=== PATIENT | female | born 1950 | race Caucasian/White ===

== ENCOUNTER 2016-11-02 07:27 | Inpatient (IN) | payer MEDICARE, BC ==
[2016-11-01 11:14] VITALS: Ht 160 cm; Wt 83.2 kg
[2016-11-02] VITALS (26 sets, daily range): BP systolic 106–155; BP diastolic 53–86; PULSE 58–78; RESP 11–20
[~2016-11-02] VITALS: Ht 160 cm; Wt 83.2 kg
[~2016-11-02 07:27] MED LIST: CEFAZOLIN 1 GM INJ ONE; CEFAZOLIN 2 GM/50 ML (PMX) 50 ML IVPB ONE; DEXAMETHASONE 1 MG TAB PO ONE; GABAPENTIN 300 MG CAP PO ONE; GLYCOPYRROLATE 0.4 MG INJ ONE; NEOSTIGMINE 3 MG/3 ML SYRINGE ONE; TRANEXAMIC ACID 1,000 MG in SOD CHLORIDE 0.9% 100 ML IVPB ONE; traMADol 50 MG TAB PO ONE
[2016-11-02] MEDS ORDERED: MIDAZOLAM 1 MG/ML 2 ML INJ ONE (07:57)
[2016-11-02] MEDS ORDERED: FENTAnyl 50 MCG/ML VIAL ONE (07:58)
[2016-11-02] MEDS ORDERED: ROPIVACAINE 0.5 % 30 ML VIAL ONE (07:59)
[2016-11-02] MEDS ORDERED: METO100T13 PO (08:02)
[2016-11-02] MEDS ORDERED: LOSA100T7 PO (08:03)
[2016-11-02] MEDS ORDERED: DOXY100T20 PO (08:06)
[2016-11-02] MEDS ORDERED: THROMBIN 5000 UNIT VIAL ONE (08:26)
[2016-11-02] MEDS ORDERED: BUPIVACAINE 0.5%/EPI (SDV) 10 ML INJ ONE (08:26)
[2016-11-02] MEDS ORDERED: POLYMYXIN/BACITRACIN 1L IRRIG ONE (08:27)
[2016-11-02] MEDS ORDERED: CA CHLORIDE 10% 10 ML SYRINGE ONE (08:27)
--- NOTE | 2016-11-02 08:34 | HPN ---
Date/Time of Note Date/Time of Note DATE: 11/02/16 TIME: 08:34 Interval H&P Admission Note Pt. seen H&P reviewed: No system changes LATA GOMEZ MD Nov 02, 2016 08:34
[2016-11-02] MEDS ORDERED: PROPOFOL 20 ML ONE (08:57)
[2016-11-02] MEDS ORDERED: ROCURONIUM 50 MG INJ ONE (08:58)
[2016-11-02] MEDS ORDERED: LIDOCAINE 2% (SDV) 5 ML INJ ONE (08:58)
[2016-11-02] MEDS ORDERED: ONDANSETRON 4 MG INJ ONE (10:12)
[2016-11-02] MEDS ORDERED: DEXAMETHASONE 4 MG/ML 1 ML INJ ONE (10:12)
[2016-11-02] MEDS ORDERED: DIPHENHYDRAMINE 50 MG INJ IV PRN ×2 (10:30)
[2016-11-02] MEDS ORDERED: HYDROmorphONE (0.2 MG/ML) 10ML SYG IV PRN ×3 (10:30)
[2016-11-02] MEDS ORDERED: TRANEXAMIC ACID 1,000 MG in SOD CHLORIDE 0.9% 100 ML IV ONE (10:30)
[2016-11-02] MEDS ORDERED: OXYCODONE/ACETAMINOPHEN (5/325) TAB PO PRN ×3 (10:30)
[2016-11-02] MEDS ORDERED: EPHEDrine SULFATE 50 MG/5 ML SYG IV PRN (10:30)
[2016-11-02] MEDS ORDERED: ZOLPIDEM 5 MG TAB PO PRN (10:30)
[2016-11-02] MEDS ORDERED: morphine 2 MG INJ IV PRN (10:30)
[2016-11-02] MEDS ORDERED: ONDANSETRON 4 MG INJ IV PRN ×2 (10:30)
[2016-11-02] MEDS ORDERED: KETOROLAC 15 MG INJ IV PRN (10:30)
[2016-11-02] MEDS ORDERED: hydrALAzine 20 MG INJ IV PRN (10:30)
[2016-11-02] MEDS ORDERED: LABETALOL HCL 20MG INJ IV PRN (10:30)
[2016-11-02] MEDS ORDERED: morphine 4 MG/ML VIAL IV PRN (10:30)
[2016-11-02] MEDS ORDERED: FENTAnyl 50 MCG/ML VIAL IV PRN ×3 (10:30)
[2016-11-02] MEDS ORDERED: MEPERIDINE 25 MG INJ IV PRN (10:30)
[2016-11-02] MEDS ORDERED: ACETAMINOPHEN 500 MG TAB PO PRN (10:30)
[2016-11-02] MEDS ORDERED: MAGNESIUM HYDROXIDE 30ML CUP PO PRN (10:30)
--- NOTE | 2016-11-02 10:32 | OPR ---
Date/Time of Note Date/Time of Note DATE: 11/02/16 TIME: 10:28 Operative Report Procedure Date: Nov 02, 2016 Preoperative Diagnosis Secondary osteoarthritis right shoulder Postoperative Diagnosis 1 secondary osteoarthritis right shoulder 2 right shoulder massive unrepairable rotator cuff tear Operation Performed Right reverse total shoulder replacement Surgeon: LATA GOMEZ MD Training And Development Director: NIECY PATEL MD Anesthesia: general Estimated Blood Loss: 50 - 100 ml's Pt Condition Post Procedure: stable Disposition: PACU Procedure Description Training And Development Director surgeon: Niecy Patel MD was asked to be present at my request as a result of the complexity associated with this procedure including positioning of the extremity, manipulation and protection of the neurovascular structures. In my opinion, the assistance offered by a surgical elastic knitter is insufficient and Dr. Patel should be compensated for her time Procedure in detail: Following the administration of general endotracheal anesthesia, the patient was placed in the beachchair position. The right upper extremity was prepped and draped in the usual sterile fashion. An extended deltopectoral incision was then undertaken exposing the conjoined tendon and retracting it medially the subscapularis was then detached the superior rotator cuff was deficient. Once the subscapularis was detached, severe arthritic changes were noted with a large loose body. Peripheral osteophytes were then removed and a humeral head cut was then made in the appropriate degree of version and inclination. The glenoid was then exposed capsulectomy was then completed followed by entry into the central canal in preparation for a standard baseplate. A Depuy standard baseplate was then implanted with 4 peripheral screws. A 38 mm glenoid sphere was then applied with solid fixation. Attention was then directed to the humeral shaft shaft was reamed up to 10 mm and prepared for a standard reverse total shoulder component. The actual component (Depuy) with a 9 mm liner was then implanted in stable position with full range of motion. The joint was irrigated and taken through full range of motion. The wound was then closed in layers followed by a Prenio dressing for the superficial portion. The patient was then placed in an UltraSling and extubated. She was transported to recovery in stable condition tolerating the procedure well estimated blood loss was procedure was 100 cc postoperative x-rays will be obtained in the recovery room. LATA GOMEZ MD Nov 02, 2016 10:32
--- NOTE | 2016-11-02 10:33 | PDOCDIS ---
Discharge Instructions DIAGNOSIS Discharge Diagnosis Right shoulder arthritis CONDITION Patient Condition: Good HOME CARE INSTRUCTIONS: Diet Instructions: Regular ACTIVITY: Activity Restrictions: Slowly Increase Activity Keep Limb Elevated Bathing Restrictions: Shower FOLLOW UP/APPOINTMENTS Follow-up Plan 2 weeks after surgery in the office SCHOOL/WORK RELEASE May return to School/Work with: With Restrictions School/Work Release Comment: 5 pounds tabletop usage for the next 6 weeks LATA GOMEZ MD Nov 02, 2016 10:33
[2016-11-02] MEDS ORDERED: CEFAZOLIN 1 GM/50 ML (PMX) 50 ML IVPB ONE (10:44)
[2016-11-02] MEDS: CEFAZOLIN 1 GM/50 ML (PMX) 50 ML IVPB SCH ×2 (11:00→18:55)
--- NOTE | 2016-11-02 11:59 | RADRPT ---
PROCEDURE: XR Right Shoulder CLINICAL INDICATION: Postop TECHNIQUE: An AP and a Y view were submitted. COMPARISON: None FINDINGS: Osseous structures: A well seated reverse total right shoulder arthroplasty is evident with the comp onents well-seated. The osseous elements otherwise appear intact but rarefied. Joint spaces: The prosthetic joint space and the AC joint are well maintained. Soft tissues: Postoperative subcutaneous air is evident. There appears to be mild left lateral pleu ral thickening. IMPRESSION: 1. Well seated reversed total right shoulder arthroplasty. 2. Postop subcutaneous air is evident. 3. Osteoporosis 4. Mild right lateral pleural thickening. Physician Tye Date Time Electronically viewed and signed by Physician Tye on 11/02/2016 11:59 /
[2016-11-02] MEDS: DEXAMETHASONE 2 MG TAB PO SCH ×3 (12:57→23:00)
[2016-11-02] MEDS: SENNA/DOCUSATE NA (8.6MG/50MG) TAB PO SCH (20:24)
[2016-11-02] MEDS ORDERED: GABAPENTIN 300 MG CAP PO SCH (21:00)
[2016-11-02] MEDS: OXYCODONE/ACETAMINOPHEN (5/325) TAB PO PRN (22:57)
[2016-11-03] MEDS: CEFAZOLIN 1 GM/50 ML (PMX) 50 ML IVPB SCH (03:18)
[2016-11-03] MEDS: OXYCODONE/ACETAMINOPHEN (5/325) TAB PO PRN ×2 (03:21→09:32)
[2016-11-03] MEDS: DEXAMETHASONE 2 MG TAB PO SCH (05:45)
--- NOTE | 2016-11-03 07:01 | PN ---
Date/Time of Note Date/Time of Note DATE: 11/03/16 TIME: 07:00 24 hour Interval Summary Patient is awake and alert. She has no pain at this point. She is very comfortable. Physical Exam Physical examination reveals that her wound is clean and dry. She is neurologically intact. She has no signs of DVT. Vital Signs Date Time Temp Pulse Resp B/P Pulse Ox O2 Delivery O2 Flow Rate FiO2 11/02/16 20:34 98.3 86 20 106/53 94 11/02/16 18:00 Room Air 11/02/16 12:30 4.0 Intake and Output 11/02/16 11/02/16 11/03/16 15:00 23:00 07:00 Intake Total 800 ml 750 ml Output Total 60 ml 900 ml Balance 740 ml -150 ml VTE Prophylaxis VTE Prophylaxis Intervention: anti-embolic stocking Lines/Catheters IV Catheter Type: Saline Lock Mccallum in Place: No Assessment/Plan Assessment/Plan Assessment: Status post total shoulder replacement. She will go through physical therapy this morning and follow-up following discharge in the next 2 weeks in the office. Medications Medications Home Meds Reported Medications Doxycycline Hyclate* (Doxycycline Hyclate*) 100 Mg Tablet.dr, 100 MG PO BID, TAB STARTED -11 FOR 5 DAYS 11/02/16 Losartan Potassium* (Losartan Potassium*) 100 Mg Tablet, 100 MG PO DAILY, TAB 11/02/16 Metoprolol Succinate* (Toprol XL*) 100 Mg Tab.sr.24h, 100 MG PO DAILY, #30 TAB 11/02/16 LATA GOMEZ MD Nov 03, 2016 07:01
--- NOTE | 2016-11-03 07:02 | DS ---
Date/Time of Note Date/Time of Note DATE: 11/03/16 TIME: 07:01 Discharge Summary Admission/Discharge Info Admit Date/Time Nov 02, 2016 at 07:27 Discharge Date/Time November 03, 2016 Discharge Diagnosis Right shoulder arthritis Patient Condition: Good Procedures right reverse total shoulder replacement Hx of Present Illness Severe pain and stiffness in the bilateral shoulders with the right being worse Hospital Course Patient was admitted and underwent an uncomplicated right reverse total shoulder replacement. Postoperative day #1 she was clean and dry neurologically intact discharged to be followed up in the office in 2 weeks Home Meds Reported Medications Doxycycline Hyclate* (Doxycycline Hyclate*) 100 Mg Tablet.dr, 100 MG PO BID, TAB STARTED 7-11 FOR 5 DAYS 11/02/16 Losartan Potassium* (Losartan Potassium*) 100 Mg Tablet, 100 MG PO DAILY, TAB 11/02/16 Metoprolol Succinate* (Toprol XL*) 100 Mg Tab.sr.24h, 100 MG PO DAILY, #30 TAB 11/02/16 Primary Care Provider Not On Staff Doctor LATA GOMEZ MD Nov 03, 2016 07:02
[2016-11-03 07:40] VITALS: BP 121/58; RESP 18
[2016-11-03] MEDS ORDERED: METOPROLOL (XL) 100 MG TAB PO SCH (09:00)
[2016-11-03] MEDS ORDERED: ASPIRIN 81 MG TAB PO SCH (09:00)
[2016-11-03] MEDS ORDERED: LOSARTAN 50 MG TAB PO SCH (09:00)
[2016-11-03] MEDS: SENNA/DOCUSATE NA (8.6MG/50MG) TAB PO SCH (09:27)
== END 2016-11-03 12:00 | disposition home or self-care (01) | DRG 483 ==
LOC: REC 07:27 → MS1 14:17
PROVIDERS: ADMIT Orthopaedic Surgery; ATTEND Orthopaedic Surgery
PROC: 0RRJ00Z Replacement of Right Shoulder Joint with Reverse Ball and Socket Synthetic Substitute, Open Approach (ICD-10-PCS; principal; 2016-11-02 09:30)
DX: M19.211 Secondary osteoarthritis, right shoulder (principal); M75.101 Unspecified rotator cuff tear or rupture of right shoulder, not specified as traumatic
CPT/HCPCS: 86999; 88304; 88311; 97167; C1776; J0690; J1100; J2250; J2405; J2710; J2795; J3010

== ENCOUNTER 2017-01-25 07:38 | Inpatient (IN) | payer MEDICARE, BC ==
[2017-01-24 09:42] VITALS: BMI 32.0
[2017-01-25] VITALS (24 sets, daily range): BP systolic 104–201; BP diastolic 56–93; PULSE 50–80; RESP 8–20; Ht 160 cm; Wt 83.2 kg
[~2017-01-25] VITALS: Ht 160 cm; Wt 83.2 kg
--- NOTE | 2017-01-25 06:47 | HPN ---
Date/Time of Note Date/Time of Note DATE: 01/25/17 TIME: 06:47 Interval H&P Admission Note Pt. seen H&P reviewed: No system changes LATA GOMEZ MD Jan 25, 2017 06:47
[~2017-01-25 07:38] MED LIST changes: +BUPIVACAINE 0.5% (SDV) 30 ML, morphine SULFATE (PF) 8 MG, EPINEPHrine 0.3 MG, KETOROLAC... IRR SCH; -CEFAZOLIN 1 GM INJ ONE; +DOXY100T20 PO; -GLYCOPYRROLATE 0.4 MG INJ ONE; +LOSA100T7 PO; +METO-336 PO; -NEOSTIGMINE 3 MG/3 ML SYRINGE ONE
[2017-01-25] MEDS ORDERED: METO-319 PO (08:06)
[2017-01-25] MEDS ORDERED: DOXY100T20 PO (08:07)
[2017-01-25] MEDS ORDERED: OXYCODONE/ACETAMINOPHEN (5/325) TAB PO PRN ×5 (08:30→15:00)
[2017-01-25] MEDS ORDERED: PROCHLORPERAZINE 10 MG INJ IV PRN ×2 (08:30→15:00)
[2017-01-25] MEDS ORDERED: ONDANSETRON 4 MG INJ IV PRN ×3 (08:30→15:00)
[2017-01-25] MEDS ORDERED: HYDROmorphONE (0.2 MG/ML) 10ML SYG IV PRN ×4 (08:30→15:00)
[2017-01-25] MEDS ORDERED: FENTAnyl 50 MCG/ML VIAL IV PRN ×2 (08:30→15:00)
[2017-01-25] MEDS ORDERED: MEPERIDINE 25 MG INJ IV PRN ×2 (08:30→15:00)
[2017-01-25] MEDS ORDERED: DIPHENHYDRAMINE 50 MG INJ IV PRN ×3 (08:30→15:00)
[2017-01-25] MEDS ORDERED: SUCCINYLCHOLINE CHLORIDE 100 MG/5 ML SYG IV ONE (10:56)
[2017-01-25] MEDS ORDERED: PROPOFOL 20 ML ONE (10:56)
[2017-01-25] MEDS ORDERED: LIDOCAINE 2% (SDV) 5 ML INJ ONE (10:56)
[2017-01-25] MEDS ORDERED: FENTAnyl 50 MCG/ML VIAL ONE ×2 (10:57→14:11)
[2017-01-25] MEDS ORDERED: MIDAZOLAM 1 MG/ML 2 ML INJ ONE (10:57)
[2017-01-25] MEDS ORDERED: ROPIVACAINE 0.5 % 30 ML VIAL ONE (10:57)
[2017-01-25] MEDS ORDERED: THROMBIN 5000 UNIT VIAL ONE (12:41)
[2017-01-25] MEDS ORDERED: CA CHLORIDE 10% 10 ML SYRINGE ONE (12:41)
[2017-01-25] MEDS ORDERED: BUPIVACAINE 0.5%/EPI (SDV) 30 ML INJ ONE (12:41)
[2017-01-25] MEDS ORDERED: DEXAMETHASONE 4 MG/ML 1 ML INJ ONE (13:34)
[2017-01-25] MEDS ORDERED: METOCLOPRAMIDE 10 MG INJ ONE (13:34)
[2017-01-25] MEDS ORDERED: ONDANSETRON 4 MG INJ ONE (13:34)
[2017-01-25] MEDS ORDERED: CEFAZOLIN 1 GM INJ ONE (13:37)
[2017-01-25] MEDS ORDERED: EPHEDrine SULFATE 50 MG/5 ML SYG ONE (13:37)
[2017-01-25] MEDS ORDERED: ROCURONIUM 50 MG INJ ONE (13:37)
[2017-01-25] MEDS ORDERED: GLYCOPYRROLATE 0.4 MG INJ ONE ×2 (13:44→13:59)
[2017-01-25] MEDS ORDERED: NEOSTIGMINE 3 MG/3 ML SYRINGE ONE (13:59)
[2017-01-25] MEDS ORDERED: POLYMYXIN/BACITRACIN 1L IRRIG IRR ONE (14:00)
--- NOTE | 2017-01-25 14:16 | PDOCDIS ---
Discharge Instructions DIAGNOSIS Discharge Diagnosis Left shoulder arthritis CONDITION Patient Condition: Good HOME CARE INSTRUCTIONS: Diet Instructions: Regular ACTIVITY: Activity Restrictions: Slowly Increase Activity Keep Limb Elevated FOLLOW UP/APPOINTMENTS Follow-up Plan Follow-up in the office in 2 weeks SCHOOL/WORK RELEASE May return to School/Work with: With Restrictions School/Work Release Comment: 5 pounds tabletop usage for 6 weeks LATA GOMEZ MD Jan 25, 2017 14:16
--- NOTE | 2017-01-25 14:16 | OPR ---
Date/Time of Note Date/Time of Note DATE: 01/25/17 TIME: 14:13 Operative Report Procedure Date: Jan 25, 2017 Preoperative Diagnosis Left shoulder rotator cuff tear arthropathy Postoperative Diagnosis Left shoulder rotator cuff tear arthropathy Operation/Procedure Performed Left reverse total shoulder replacement Surgeon see signature line Instructional Material Director Markel Souza MD Anesthesia Type: general Estimated Blood Loss: 50 - 100 ml's Transfusion none Specimen none Grafts/Implants none Complications none Pt Condition Post Procedure: stable Disposition: PACU Procedure Description CIVIL PREPAREDNESS OFFICER SURGEON: Markel Schulte MD was asked to be present for this case at my request. Assistance was necessary as a result of the highly technical nature of this operation. When performing an open total shoulder replacement, it is critical to have a trained machine assistant who is an expert in handling the extremity and assisting the surgeon in tasks such as manipulation of the arm, protection of the neurovascular structures and positioning the implants. This assistance cannot be performed by a chemical laboratory technician, as it is considered an integral part of the procedure and the machine assistant should be compensated for their time. PROCEDURE IN DETAIL: Following the administration of general anesthesia supplemented with a peripheral nerve block for postoperative pain control, the patient was examined under anesthesia. Examination of the left shoulder revealed very significant stiffness with severe crepitus. There was anteroposterior escape of the humeral head, also. The patient was then placed in the beach chair position. Sterile prep and drape was then undertaken. An extended deltopectoral incision was then carried through the interval exposing the conjoined tendon and retracting it medially. The subscapularis was noted to be partially disrupted superiorly. Severe arthritic changes were noted with very large peripheral osteophytes. The superior rotator cuff was torn and retracted. The biceps tendon was torn. A humeral head osteotomy was then created in the appropriate degree of version and inclination. The humerus was retracted and the glenoid was exposed. Peripheral osteophytes were removed and a complete capsulectomy performed. The central canal of the glenoid was then entered and prepared for a size standard Depuy baseplate. A standard Depuy baseplate was then applied with four peripheral screws and solid fixation. A 38 mm glenosphere was then applied, with solid fixation. The humerus was then reamed and prepared for a 8 mm humeral component with a standard metaphyseal component. The actual components were implanted with solid fixation. The arm was taken through full range of motion with no evident instability. The joint was then thoroughly irrigated, the deep tissues were approximated using #1 suture followed by closure of the deep layer using 2-0 Monocryl. The skin was closed using 4-0 Monocryl suture, and a Prenio dressing. An Ultrasling was then applied. The patient was awakened and transported to the recovery room in stable condition. Estimated blood loss for this procedure was 100 cc. Radiographs will be obtained in the recovery room. TOURNIQUET TIME: [] TRANSFUSION REQUIRED: [] SPECIMENS: [] GRAFTS/IMPLANTS: [] TUBES/DRAINS: [] COMPLICATIONS: [] PT. CONDITION POST PROCEDURE: [] DISPOSITION: [] LATA GOMEZ MD Jan 25, 2017 14:15
[2017-01-25] MEDS ORDERED: morphine 4 MG/ML VIAL IV PRN (14:30)
[2017-01-25] MEDS ORDERED: ACETAMINOPHEN 500 MG TAB PO PRN (14:30)
[2017-01-25] MEDS ORDERED: KETOROLAC 15 MG INJ IV PRN (14:30)
[2017-01-25] MEDS ORDERED: MAGNESIUM HYDROXIDE 30ML CUP PO PRN (14:30)
[2017-01-25] MEDS ORDERED: ZOLPIDEM 5 MG TAB PO PRN (14:30)
[2017-01-25] MEDS: CEFAZOLIN 1 GM/50 ML (PMX) 50 ML IVPB SCH ×2 (14:30→22:30)
[2017-01-25] MEDS ORDERED: TRANEXAMIC ACID 1,000 MG in SOD CHLORIDE 0.9% 100 ML IV ONE (14:30)
[2017-01-25] MEDS ORDERED: morphine 2 MG INJ IV PRN (14:30)
[2017-01-25] MEDS ORDERED: hydrALAzine 20 MG INJ ONE (14:34)
[2017-01-25] MEDS ORDERED: KETOROLAC 30 MG INJ IV PRN (15:00)
[2017-01-25] MEDS ORDERED: LABETALOL HCL 20MG INJ IV PRN (15:00)
[2017-01-25] MEDS ORDERED: hydrALAzine 20 MG INJ IV PRN (15:00)
--- NOTE | 2017-01-25 16:50 | RADRPT ---
PROCEDURE: XR Left Shoulder. CLINICAL INDICATION: Left shoulder pain. Postop. TECHNIQUE: 3 views. Frontal and obliques. COMPARISON: No prior study is available for comparison. FINDINGS: There is a left shoulder reverse arthroplasty. This appears satisfactory. There is no fracture, dislocation, or loosening. Gas is present in the soft tissues related to the recent surgery. IMPRESSION: 1. Satisfactory postoperative appearance of the left shoulder. RPTAT: QQ .Kenyon Dockery MD, MD Date Time Electronically viewed and signed by .Kenyon Dockery MD, on 01/25/2017 16:50 .R/
[2017-01-25] MEDS: DEXAMETHASONE 2 MG TAB PO SCH (18:07)
[2017-01-25] MEDS: SENNA/DOCUSATE NA (8.6MG/50MG) TAB PO SCH (20:54)
[2017-01-25] MEDS ORDERED: GABAPENTIN 300 MG CAP PO SCH (21:00)
[2017-01-26] MEDS: DEXAMETHASONE 2 MG TAB PO SCH ×2 (00:53→05:53)
[2017-01-26] MEDS: CEFAZOLIN 1 GM/50 ML (PMX) 50 ML IVPB SCH ×2 (00:53→08:09)
[2017-01-26 02:00] VITALS: BP 129/77; RESP 18
[2017-01-26] MEDS: OXYCODONE/ACETAMINOPHEN (5/325) TAB PO PRN ×2 (04:40→11:08)
--- NOTE | 2017-01-26 04:55 | DS ---
Date/Time of Note Date/Time of Note DATE: 01/26/17 TIME: 04:54 Discharge Summary Admission/Discharge Info Admit Date/Time Jan 25, 2017 at 07:38 Discharge Date/Time January 26, 2017 following clearance by Occupational Therapy Discharge Diagnosis Left shoulder arthritis Procedures Left reverse total shoulder replacement Hx of Present Illness Pain and stiffness for many years after traumatic incident Hospital Course Patient underwent an uncomplicated procedure. Subsequent to physical therapy the patient was discharged home to be followed up in 2 weeks Home Meds Reported Medications Doxycycline Hyclate* (Doxycycline Hyclate*) 100 Mg Tablet.dr, 100 MG PO BID, TAB started on 01-22-17 for 5 days 01/25/17 Metoprolol Succinate* (Toprol XL*) 50 Mg Tab.er.24h, 50 MG PO DAILY, #30 TAB 01/25/17 Losartan Potassium* (Losartan Potassium*) 100 Mg Tablet, 100 MG PO DAILY, TAB 11/02/16 Discontinued Reported Medications Doxycycline Hyclate* (Doxycycline Hyclate*) 100 Mg Tablet.dr, 100 MG PO BID, TAB STARTED 10-31 FOR 5 DAYS 11/02/16 Metoprolol Succinate* (Toprol XL*) 100 Mg Tab.sr.24h, 100 MG PO DAILY, #30 TAB 11/02/16 Follow-up Plan Follow-up in the office in 2 weeks Primary Care Provider Not On Staff Doctor LATA GOMEZ MD Jan 26, 2017 04:55
--- NOTE | 2017-01-26 06:03 | PN ---
Date/Time of Note Date/Time of Note DATE: 01/26/17 TIME: 06:02 24 hour Interval Summary Radha is awake and alert with no complaints Physical Exam Physical examination: The wound is clean and dry. There are neurologically intact. There are no signs of DVT. Vital Signs Date Time Temp Pulse Resp B/P Pulse Ox O2 Delivery O2 Flow Rate FiO2 01/25/17 20:00 Nasal Cannula 2.0 01/25/17 19:10 97.4 66 18 124/70 94 Intake and Output 01/25/17 01/25/17 01/26/17 15:00 23:00 07:00 Intake Total 800 ml 50 ml Output Total 150 ml Balance 650 ml 50 ml VTE Prophylaxis VTE Prophylaxis Intervention: anti-embolic stocking Lines/Catheters IV Catheter Type: Saline Lock Mccallum in Place: No Assessment/Plan Chief Complaint/Hosp Course Patient underwent an uncomplicated procedure. Subsequent to physical therapy the patient was discharged home to be followed up in 2 weeks Problems: Assessment/Plan Assessment: Status post reverse total shoulder Plan occupational therapy this morning followed by discharged home after that Medications Medications Home Meds Reported Medications Doxycycline Hyclate* (Doxycycline Hyclate*) 100 Mg Tablet.dr, 100 MG PO BID, TAB started on 01-22-17 for 5 days 01/25/17 Metoprolol Succinate* (Toprol XL*) 50 Mg Tab.er.24h, 50 MG PO DAILY, #30 TAB 01/25/17 Losartan Potassium* (Losartan Potassium*) 100 Mg Tablet, 100 MG PO DAILY, TAB 11/02/16 Discontinued Reported Medications Doxycycline Hyclate* (Doxycycline Hyclate*) 100 Mg Tablet.dr, 100 MG PO BID, TAB STARTED 10-31 FOR 5 DAYS 11/02/16 Metoprolol Succinate* (Toprol XL*) 100 Mg Tab.sr.24h, 100 MG PO DAILY, #30 TAB 11/02/16 LATA GOMEZ MD Jan 26, 2017 06:03
[2017-01-26 07:42] VITALS: BP 115/71; RESP 1
[2017-01-26] MEDS: SENNA/DOCUSATE NA (8.6MG/50MG) TAB PO SCH (08:59)
[2017-01-26] MEDS ORDERED: LOSARTAN 50 MG TAB PO SCH (09:00)
[2017-01-26] MEDS ORDERED: ASPIRIN 81 MG TAB PO SCH (09:00)
[2017-01-26] MEDS ORDERED: METOPROLOL (XL) 50 MG TAB PO SCH (09:00)
== END 2017-01-26 11:45 | disposition home or self-care (01) | DRG 483 ==
LOC: REC 07:38 → MS1 16:00
PROVIDERS: ADMIT Orthopaedic Surgery; ATTEND Orthopaedic Surgery
PROC: 0RRK00Z Replacement of Left Shoulder Joint with Reverse Ball and Socket Synthetic Substitute, Open Approach (ICD-10-PCS; principal; 2017-01-25 11:30)
DX: M19.012 Primary osteoarthritis, left shoulder (principal); I11.9 Hypertensive heart disease without heart failure; M75.42 Impingement syndrome of left shoulder; E55.9 Vitamin D deficiency, unspecified; E78.5 Hyperlipidemia, unspecified
CPT/HCPCS: 73030; 86999; 88304; 88311; 97110; 97166; C1776; J0171; J0360; J0690; J0735; J1100; J1170; J1885; J2250; J2274; J2405; J2710; J2765; J2795; J3010; J3370; J7999